=== PATIENT | female | born 1995 | race Caucasian/White ===

== ENCOUNTER 2017-01-29 17:33 | Emergency (ER) | payer OTHER ==
[2017-01-29 17:41] VITALS: TEMP 97.9; O2SAT 97
--- NOTE | 2017-01-29 19:21 | EDPHY ---
H & P Stated Complaint: Lac to left index finger. HPI/ROS: HPI: This is a 21-year-old female who presents with Chief Complaint: Left index finger laceration Location: Left index finger Quality: Laceration Duration: Prior to Arrival Signs and Symptoms: + bleeding, no radiation, no numbness, no weakness, no tingling, no decreased range of motion, no swelling, + pain Timing: Acute Severity: mild to moderate Context: Patient is right hand dominant, was preparing dinner, when she accidentally cut her left index finger with a knife while cutting bread. She said immediately started to bleed and she felt mild pain. She applied direct pressure with bleeding continued. She was home alone, so she called her mother , who advised her to go to her neighbor's house. She has her neighbor drive her to the emergency room as she felt like she could not drive. Tetanus is up- to-date. Modifying Factors: Direct pressure Comment: ROS: see HPI Constitutional: No fever, no chills, no weight loss Eyes: No blurred vision Respiratory: No shortness of breath, no cough Cardiovascular: No chest pain Gastrointestinal: No nausea, no vomiting no diarrhea Genitourinary: No dysuria Extremities: No myalgias Neurologic: No weakness, no numbness Skin: No rashes Hematologic: No bruising, no bleeding MEDICAL/SURGICAL/SOCIAL HISTORY: Medical history: Anxiety Surgical history: Denies Social history: Local [employer] college student CONSTITUTIONAL: Adult white female, awake and alert, no obvious distress HEENT: Atraumatic and normocephalic, PERRL, EOMI. Tympanic membranes clear. Oropharynx clear, no exudate and moist pink mucosa. Airway patent. No lymphadenopathy. No meningismus. Cardiovascular: Normal S1/S2, regular rate, regular rhythm, without murmur rub or gallop. PULMONARY/CHEST: Symmetrical and nontender. Clear to auscultation bilaterally. Good air movement. No accessory muscle usage. ABDOMEN: Soft, nondistended, nontender, no rebound, no guarding, no peritoneal signs, no masses or organomegaly. No CVAT. EXTREMITIES: 2/2 radial pulses, rib strength 5/5, right hand index finger: 2 cm superficial linear laceration near the tip sparing the DIP joint in nail. flexion/extension/light touch sensation intact. no clubbing, no cyanosis or edema. NEUROLOGICAL: no focal neuro deficits. GCS 15. SKIN: Warm and dry, no erythema. no rash. Good capillary refill. Source: Patient Exam Limitations: No limitations - Personal History LMP (Females 10-55): IUD In Place Current Tetanus Diphtheria and Acellular Pertussis (TDAP): Yes Tetanus Vaccine Date: 2007 - Medical/Surgical History Hx Asthma: No Hx Chronic Respiratory Disease: No Hx Diabetes: No Hx Cardiac Disease: No Hx Renal Disease: No Hx Cirrhosis: No Hx Alcoholism: No Hx HIV/AIDS: No Hx Splenectomy or Spleen Trauma: No Other PMH: Denies. - Social History Smoking Status: Never smoked Constitutional: Initial Vital Signs Temperature (C) 36.6 C 01/29/17 17:38 Heart Rate 67 01/29/17 17:38 Respiratory Rate 18 01/29/17 17:38 Blood Pressure 128/71 H 01/29/17 17:38 O2 Sat (%) 97 01/29/17 17:38 O2 Delivery Mode Room Air Allergies/Adverse Reactions: No Known Allergies Allergy (Unverified 01/29/17 17:41) Home Medications: Medication Instructions Recorded NK [No Known Home Meds] 01/29/17 Medical Decision Making Procedures: Procedure: Laceration repair. Verbal consent was obtained from the patient. The 2 cm, simple, superficial laceration on the left index finger was anesthetized in the usual fashion. The wound was irrigated, draped and explored to its base with a gloved finger. There were no deep structures involved. No tendon injury was identified. The wound was repaired with #5, 6-0 Prolene simple interrupted pattern. Good hemostasis was achieved and patient tolerated procedure well. Xeroform, clean sterile dressing the and caged finger splint applied. The procedure was performed by myself. Procedure: Splint placement. A caged finger splint was applied by the Emergency Room electronic communications technician. After application of the splint I returned and re-examined the patient. The splint was adequately immobilizing the joint and distal to the splint the patient's circulation and sensation was intact. ED Course/Re-evaluation: Wound care and laceration repair Tetanus up-to-date No signs of neurovascular compromise/tenting of skin/compartment syndrome/ extremities and joints examined above and below area of concern and are neurovascularly intact. This patient was seen under the supervision of my primary supervising physician. I evaluated care for this patient independently. Discussed this patient with Dr. Davis who did not see the patient. Differential Diagnosis: Differential diagnosis includes but is not limited to laceration, nerve injury, tendon injury, foreign body, nail involvement. Departure - Departure Disposition: Home, Routine, Self-Care Clinical Impression: Laceration of index finger of left hand without complication Qualifiers: Encounter type: initial encounter Qualified Code(s): S61.211A - Laceration without foreign body of left index finger without damage to nail, initial encounter Condition: Good Instructions: Care For Your Stitches (ED), Laceration (ED) Additional Instructions: Keep the dressing and splint dry and in place for 48 hours. After 48 hours, you may remove the dressing; wash the site daily with mild soap and water; then pat dry. Take Tylenol 650 mg every 4 hours and/or Ibuprofen 600 mg every 8 hours with food as needed for pain. Apply ice for 30 minutes at a time; 2-3 times per day for the next 1-2 days. Please return to the emergency room in 7-10 days to have your sutures removed. Referrals: HETAL DAVE [Other] - As per Instructions Stand Alone Forms: School Excuse
[2017-01-29 19:45] VITALS: BP 130/75; PULSE 83; RESP 20
== END 2017-01-29 19:42 | disposition home or self-care (01) ==
PROC: 0HQGXZZ Repair Left Hand Skin, External Approach (ICD-10-PCS; principal; 2017-01-29)
DX: S61.211A Laceration without foreign body of left index finger without damage to nail, initial encounter (principal); W26.0XXA Contact with knife, initial encounter
CPT/HCPCS: L3925